=== PATIENT | female | born 1975 | race African-American/Black ===

== ENCOUNTER 2020-01-05 11:26 | Emergency (ER) | payer OTHER ==
--- NOTE | 2020-01-05 14:19 | RAD ---
LEFT GREAT TOE THREE VIEWS: 01/05/20 No fracture or joint abnormality was seen. No bony erosions were noted. IMPRESSION: No acute bony findings. POS: [facility]
== END 2020-01-05 12:05 | disposition home or self-care (01) ==
LOC: BURERS 11:26
DX: L03.032 Cellulitis of left toe (principal); M10.9 Gout, unspecified

== ENCOUNTER 2020-02-23 09:19 | Emergency (ER) | payer OTHER ==
--- NOTE | 2020-02-23 10:26 | RAD ---
LEFT KNEE 4 VIEWS: HISTORY: Fall, left knee pain. FINDINGS/IMPRESSION: No acute fracture or dislocation is identified. POS: [facility]
--- NOTE | 2020-02-23 10:27 | RAD ---
LEFT ANKLE 3 VIEWS: HISTORY: Fall, left ankle pain. FINDINGS/IMPRESSION: The ankle mortise is maintained. No acute fracture or dislocation is identified. POS: [facility]
--- NOTE | 2020-02-23 10:28 | RAD ---
LEFT FOOT 3 VIEWS: HISTORY: Fall, left foot pain. FINDINGS/IMPRESSION: There is a nondisplaced fracture involving the medial aspect of the base of distal phalanx of the gre at toe with the fracture line likely extending to the articular surface. POS: [facility]
--- NOTE | 2020-02-23 10:29 | RAD ---
RIGHT FOOT 3 VIEWS: HISTORY: Fall, right foot pain. FINDINGS/IMPRESSION: No acute fracture or dislocation is identified. POS: [facility]
== END 2020-02-23 10:40 | disposition home or self-care (01) ==
LOC: BURERS 09:19
DX: S92.425A Nondisplaced fracture of distal phalanx of left great toe, initial encounter for closed fracture (principal); S93.402A Sprain of unspecified ligament of left ankle, initial encounter; W19.XXXA Unspecified fall, initial encounter

== ENCOUNTER 2020-06-21 16:11 | Emergency (ER) | payer OTHER ==
[2020-06-21 16:41] LABS: Hemoglobin 9.5 g/dL (12.0-16.0); Mean Corpuscular HGB CONC 30.5 g/dL (32.0-36.0); Mean Corpuscular Hemoglobin 25.6 pg (27.0-31.0); Mean Platelet Volume 7.6 fL (7.4-10.4); Platelet Count 232 thou/uL (130-400); RBC Distribution Width 20.2 % (11.5-14.5); White Blood Cell (WBC) Count 6.3 thou/uL (4.8-10.8)
[2020-06-21 16:52] LABS: ALT (SGPT) 20 U/L (8-55); AST (SGOT) 51 U/L (5-34); Albumin 3.9 g/dL (3.5-5.0); Alkaline Phosphatase 163 U/L (40-110); Anion Gap 14 mmol/L (10-20); BUN (Urea Nitrogen) 10 mg/dL (7.0-18.7); Bilirubin, Total 0.2 mg/dL (0.2-1.2); Calc. Creatinine Clearance 0 mL/min (70-130); Calcium 8.4 mg/dL (7.8-10.44); Carbon Dioxide 19 mmol/L (22-29); Chloride 110 mmol/L (98-107); Globulin 4.2 g/dL (2.4-3.5); Glucose 104 mg/dL (70-105); Lipase 19 U/L (8-78); Potassium 4.3 mmol/L (3.5-5.1); Protein, Total 8.1 g/dL (6.0-8.3); Sodium 139 mmol/L (136-145)
[2020-06-21 16:54] LABS: Alcohol 431 mg/dL (Less than 10)
[2020-06-21 17:00] LABS: Lymphocytes 48 % (21-51); MDiff Complete? YES; Monocytes 7 % (0-10); Neutrophil 39 % (42-75); Reactive Lymphocytes 6 % (0-10)
[2020-06-21 17:53] LABS: Bilirubin Negative (Negative); Blood, Urine Negative (Negative); Clarity Clear (Clear); Glucose, Urine (Dipstick) Negative (Negative); Ketone, Urine Negative (Negative); Leukocyte Negative (Negative); Nitrite Negative (Negative); Protein, Urine (Dipstick) Negative (Neg-Trace); Urobilinogen 0.2 mg/dL (Less than 2)
[2020-06-21 17:54] LABS: Specific Gravity, Urine 1.004 (1.002-1.036)
== END 2020-06-21 17:39 | disposition home or self-care (01) ==
LOC: BURERS 16:11
DX: R07.9 Chest pain, unspecified (principal); F10.129 Alcohol abuse with intoxication, unspecified; K70.30 Alcoholic cirrhosis of liver without ascites; R06.4 Hyperventilation; D50.9 Iron deficiency anemia, unspecified; N18.4 Chronic kidney disease, stage 4 (severe)
CPT/HCPCS: 71045; 80053; 80307; 81003; 83690; 84484; 85025; 85379; 93005; 94760

== ENCOUNTER 2024-02-10 11:30 | Outpatient (CLI) | payer OTHER | END 2024-02-10 11:31 | disposition home or self-care (01) | LOC: BURRAD 11:30 | PROVIDERS: ATTEND Physician Assistant | DX: M25.552 Pain in left hip (principal); M16.12 Unilateral primary osteoarthritis, left hip ==